=== PATIENT | male | born 1995 | race Two or more races ===

== ENCOUNTER → 2019-05-16 | Outpatient (CLI) | payer OTHER ==
--- NOTE | 2019-05-16 13:01 | Diagnostic Imaging Report ---
Indication: Abdominal pain, abnormal liver function tests Technique: Fong-scale and duplex images of the upper abdomen were obtained Comparison: none Findings: Gallbladder is unremarkable, without stones, wall thickening, nor pericholecystic fluid. Sonographic Lopez's sign is negative. Common bile duct measures 5 mm in diameter. No intrahepatic biliary ductal dilatation. Liver demonstrates diffusely increased echogenicity, consistent with diffuse hepatocellular disease, most likely fatty change. There is some focal sparing the usual location adjacent to the gallbladder fossa. Liver is slightly enlarged. Portal vein and hepatic veins are patent. Pancreas is unremarkable. The spleen is enlarged, measuring 15.7 cm long axis dimension. Left kidney measures 12.2 cm in length. Right kidney measures 10 cm length. Both kidneys demonstrate normal echogenicity. There is no hydronephrosis. No focal abnormality . Abdominal aorta is partially obscured by bowel gas, visualized portions are non-aneurysmal . Impression: Borderline hepatomegaly. Liver demonstrates diffusely increased echogenicity, consistent with diffuse hepatocellular disease, most likely fatty change. Splenomegaly Negative for gallstones or dilated bile ducts Note inability to visualize portions of the abdominal aorta
== END | disposition home or self-care (01) ==
LOC: ULS 09:44
DX: R79.89 Other specified abnormal findings of blood chemistry (principal); R10.9 Unspecified abdominal pain; R94.5 Abnormal results of liver function studies; R16.1 Splenomegaly, not elsewhere classified
CPT/HCPCS: 76700